=== PATIENT | female | born 1975 | race Caucasian/White ===

== ENCOUNTER 2022-12-13 09:52 | Outpatient (CLI) | payer BC | END 2022-12-13 09:53 | disposition home or self-care (01) | LOC: CSHMAMMO 09:52 | PROVIDERS: ATTEND Nurse Practitioner Family | DX: Z12.31 Encounter for screening mammogram for malignant neoplasm of breast (principal); N64.89 Other specified disorders of breast | CPT/HCPCS: 77063; 77067 ==

== ENCOUNTER 2023-01-02 13:57 | Outpatient (CLI) | payer BC | END 2023-01-02 13:58 | disposition home or self-care (01) | LOC: CSHMAMMO 13:57 | DX: N64.89 Other specified disorders of breast (principal) | CPT/HCPCS: G0279 ==

== ENCOUNTER 2024-11-25 10:32 | Outpatient (CLI) | payer BC ==
[2024-11-25] MEDS ORDERED: Iopamidol 300 61% 100 ML VIAL FS ONE (13:52)
== END 2024-11-25 10:33 | disposition home or self-care (01) ==
LOC: CSHRAD 10:32
PROVIDERS: ATTEND Nurse Practitioner Family
DX: N97.1 Female infertility of tubal origin (principal)
CPT/HCPCS: 58340; 74740